=== PATIENT | male | born 1945 | race Caucasian/White ===

== ENCOUNTER → 2016-12-09 | Outpatient (CLI) | payer MEDICARE, OTHER ==
[~2016-12-09] MED LIST: ASCO250T2 PO; ASPI-496 PO; ATOR20TA PO; BACL-19 PO; CARV6.252 PO; CHOL200024 PO; GABA400C PO; IBUP800T PO; LISI-170 PO; METF500T4 PO; MULT-377 PO
[2016-12-09 15:34] LABS: ASPARTATE AMINO TRANSFERASE 17 U/L (15-37); BLOOD UREA NITROGEN 21 mg/dL (7-18)
== END | disposition home or self-care (01) ==
LOC: STAR 14:19
PROVIDERS: ATTEND Neurological Surgery
DX: Z01.818 Encounter for other preprocedural examination (principal); M48.08 Spinal stenosis, sacral and sacrococcygeal region; M51.36 Other intervertebral disc degeneration, lumbar region; R79.1 Abnormal coagulation profile
CPT/HCPCS: 36415; 71020; 80053; 81003; 85025; 85610; 85730; 93005

== ENCOUNTER 2016-12-17 07:20 | Inpatient (IN) | payer MEDICARE, OTHER ==
[2016-12-09 15:25] VITALS: BP 161/79
[~2016-12-17] VITALS: Ht 198.1 cm; Wt 89.5 kg
[~2016-12-17 07:20] MED LIST changes: +BACITRACIN 50,000 UNIT ONE; +BUPIVACAINE/PF 0.5% ONE; +BUPIVACAINE/PF-EPI 0.5% 1:200K ONE; +IBUP-1223 PO; -IBUP800T PO; +THROMBIN 5,000 UNIT VIAL TP ONE; +VANCOMYCIN 1,000 MG ONE
[2016-12-17] MEDS ORDERED: LACTATED RINGERS 1,000 ML IV SCH (08:11)
[2016-12-17] MEDS ORDERED: LIDOCAINE 1%, 2ML ONE (08:21)
[2016-12-17] MEDS ORDERED: LIDOCAINE 1%, 2ML SQ PRN (08:30)
[2016-12-17] MEDS ORDERED: FENTANYL PF 250 MCG/5ML ONE (09:59)
[2016-12-17] MEDS ORDERED: KETAMINE 10 MG/ML, 20ML ONE (10:18)
[2016-12-17] MEDS ORDERED: HYDROmorphone 1 MG/ML, 1ML IV PRN (11:00)
[2016-12-17] MEDS ORDERED: LABETALOL 5MG/ML, 20ML IV PRN ×2 (11:00→14:00)
[2016-12-17] MEDS ORDERED: ONDANSETRON 2MG/ML, 2ML IVPush PRN (11:00)
[2016-12-17] MEDS ORDERED: OXYcodone 5 MG/5 ML ORAL.SOL UDC PO PRN (11:00)
[2016-12-17] MEDS ORDERED: hydrALAzine 20 MG/ML, 1ML IV PRN (11:00)
[2016-12-17] MEDS ORDERED: ACETAMINOPHEN 325 MG TABLET PO PRN (11:00)
[2016-12-17] MEDS ORDERED: FENTANYL PF 100 MCG/2ML ONE ×2 (11:12→12:14)
[2016-12-17] MEDS ORDERED: ACETAMINOPHEN 325 MG TABLET ONE (12:14)
[2016-12-17] MEDS ORDERED: OXYcodone 5 MG/5 ML ORAL.SOL UDC ONE (12:14)
[2016-12-17] MEDS ORDERED: ACETAMINOPHEN 650 MG/20.3 ML UDC ONE (12:14)
[2016-12-17] MEDS: FENTANYL PF 100 MCG/2ML IV PRN ×2 (12:15→12:25)
[2016-12-17] MEDS ORDERED: CYCLOBENZAPRINE 10 MG TABLET PO PRN (14:00)
[2016-12-17] MEDS ORDERED: morphine SULFATE 10 MG/ML, 1ML IV PRN (14:00)
[2016-12-17] MEDS ORDERED: PROMETHAZINE 25 MG/ML, 1ML IM PRN (14:00)
[2016-12-17] MEDS ORDERED: DIPHENHYDRAMINE 50 MG CAPSULE PO PRN (14:00)
[2016-12-17] MEDS ORDERED: OXYcodone/APAP 5/325MG TABLET PO PRN (14:00)
[2016-12-17] MEDS ORDERED: MAGNESIUM HYDROXIDE 8%, 30ML UDC PO PRN (14:00)
[2016-12-17] MEDS ORDERED: BISACODYL 10 MG SUPP PR PRN (14:00)
[2016-12-17] MEDS ORDERED: ONDANSETRON 2MG/ML, 2ML IV PRN (14:00)
[2016-12-17] MEDS: NS + 20MEQ KCL 1,000 ML IV SCH (14:24)
[2016-12-17] MEDS: BACLOFEN 10 MG TABLET PO SCH ×2 (15:23→20:11)
[2016-12-17] MEDS: GABAPENTIN 400 MG CAPSULE PO SCH ×2 (15:23→20:11)
[2016-12-17] MEDS: INSULIN REGULAR 100 UNITS/ML, 3ML VIAL SQ-INSULIN SCH ×2 (16:13→21:51)
[2016-12-17] MEDS ORDERED: SUCCINYLCHOLINE 20 MG/ML, 10ML ONE (16:51)
[2016-12-17] MEDS ORDERED: DEXAMETHASONE 4 MG/ML, 5ML ONE (16:51)
[2016-12-17] MEDS ORDERED: PROPOFOL 10 MG/ML, 20ML ONE (16:51)
[2016-12-17] MEDS ORDERED: PROPOFOL 10 MG/ML, 50ML ONE (16:51)
[2016-12-17] MEDS ORDERED: ONDANSETRON 2MG/ML, 2ML ONE (16:51)
[2016-12-17] MEDS ORDERED: CEFAZOLIN 1,000 MG ONE (16:51)
[2016-12-17 17:02] VITALS: BP 138/78
[2016-12-17] MEDS: CARVEDILOL 6.25 MG TABLET PO SCH (17:03)
[2016-12-17] MEDS: CEFAZOLIN PMX 1GM/50ML 50 ML IVPB SCH (17:57)
[2016-12-17] MEDS: HYDROcodone/APAP 10/325 MG TABLET PO PRN ×2 (19:22→20:10)
[2016-12-17 19:40] VITALS: BP 147/77
[2016-12-17] MEDS ORDERED: ATORVASTATIN 20 MG TABLET PO SCH (21:00)
[2016-12-17] MEDS ORDERED: LISINOPRIL 10 MG TABLET PO SCH (21:00)
[2016-12-18 00:03] VITALS: BP 100/56
[2016-12-18] MEDS: CEFAZOLIN PMX 1GM/50ML 50 ML IVPB SCH ×2 (01:50→10:37)
[2016-12-18] MEDS: NS + 20MEQ KCL 1,000 ML IV SCH ×2 (01:50→08:56)
[2016-12-18 02:55] VITALS: BP 129/68
[2016-12-18 06:20] VITALS: BP 127/65
[2016-12-18] MEDS: CARVEDILOL 6.25 MG TABLET PO SCH (06:21)
[2016-12-18 08:30] VITALS: BP 122/64
[2016-12-18] MEDS: INSULIN REGULAR 100 UNITS/ML, 3ML VIAL SQ-INSULIN SCH ×2 (08:46→11:16)
[2016-12-18] MEDS: BACLOFEN 10 MG TABLET PO SCH (08:57)
[2016-12-18] MEDS: GABAPENTIN 400 MG CAPSULE PO SCH (08:57)
[2016-12-18] MEDS ORDERED: metFORMIN 500 MG TABLET PO SCH (09:00)
[2016-12-18] MEDS ORDERED: SENNA/DOCUSATE TABLET PO SCH (09:00)
[2016-12-18 14:40] VITALS: BP 146/86
== END 2016-12-18 15:52 | disposition home or self-care (01) | DRG 516 ==
LOC: ORIP 07:20 → 4NOR 13:10 → DCLOUNGE 12-18 14:17 → UNDODISIN 12-18 15:09
PROVIDERS: ADMIT Neurological Surgery; ATTEND Neurological Surgery
PROC: 01NB0ZZ Release Lumbar Nerve, Open Approach (ICD-10-PCS; 2016-12-17)
PROC: 01NR0ZZ Release Sacral Nerve, Open Approach (ICD-10-PCS; 2016-12-17)
PROC: 4A11X4G Monitoring of Peripheral Nervous Electrical Activity, Intraoperative, External Approach (ICD-10-PCS; principal; 2016-12-17 09:30)
DX: M48.06 Spinal stenosis, lumbar region (principal); E44.1 Mild protein-calorie malnutrition; E11.9 Type 2 diabetes mellitus without complications; I10 Essential (primary) hypertension; E78.5 Hyperlipidemia, unspecified; F17.210 Nicotine dependence, cigarettes, uncomplicated; Z79.899 Other long term (current) drug therapy; Z98.1 Arthrodesis status; Z88.1 Allergy status to other antibiotic agents; Z90.49 Acquired absence of other specified parts of digestive tract; Z83.3 Family history of diabetes mellitus; M48.07 Spinal stenosis, lumbosacral region
CPT/HCPCS: 71020; 82962; C1729; J0690; J1100; J1815; J2405; J2704; J3010; J3370; J3480; J3490; J0330; J7120

== ENCOUNTER 2018-10-14 06:15 | Day surgery (SDC) | payer OTHER ==
[~2018-10-14] VITALS: Ht 198.1 cm; Wt 87.9 kg
[~2018-10-14 06:15] MED LIST changes: -BACITRACIN 50,000 UNIT ONE; -BUPIVACAINE/PF 0.5% ONE; -BUPIVACAINE/PF-EPI 0.5% 1:200K ONE; +METF500T17 PO; -METF500T4 PO; -MULT-377 PO; +MULT-395 PO; -THROMBIN 5,000 UNIT VIAL TP ONE; -VANCOMYCIN 1,000 MG ONE
[2018-10-14] MEDS ORDERED: SODIUM CHLORIDE 0.9% 1,000 ML IV SCH (07:06)
[2018-10-14 07:28] VITALS: BP 147/76
[2018-10-14 08:12] LABS: INTERNATIONAL NORMALIZED RATIO 1.02 (0.93-1.1); PROTHROMBIN TIME 10.7 Seconds (9.6-11.5)
[2018-10-14] MEDS ORDERED: MIDAZOLAM 1 MG/ML, 5ML ONE (08:20)
[2018-10-14] MEDS ORDERED: FENTANYL PF 100 MCG/2ML ONE (08:20)
[2018-10-14] MEDS ORDERED: FLUMAZENIL 0.1 MG/1 ML, 5ML ONE (08:20)
[2018-10-14] MEDS ORDERED: NALOXONE 1 MG/ML, 2ML ONE (08:20)
[2018-10-14] MEDS ORDERED: LIDOCAINE-MPF 1%, 5ML ONE (09:10)
== END 2018-10-14 10:10 | disposition home or self-care (01) ==
LOC: OUT 06:15 → EDSTATUS 08:00 → OUT 10:10
DX: I77.89 Other specified disorders of arteries and arterioles (principal); E11.9 Type 2 diabetes mellitus without complications; I10 Essential (primary) hypertension; F19.90 Other psychoactive substance use, unspecified, uncomplicated; Z87.891 Personal history of nicotine dependence; Z88.1 Allergy status to other antibiotic agents; Z79.84 Long term (current) use of oral hypoglycemic drugs
CPT/HCPCS: 50200; 77012; 82962; 85610; 88300; 99156; J2250; J3010; J7030; 99157; J2310